=== PATIENT | male | born 1990 | race African-American/Black ===

== ENCOUNTER 2019-09-08 08:59 | Inpatient (IN) | payer MEDICAID, OTHER ==
[~2019-09-08] VITALS: Ht 180.3 cm; Wt 66.7 kg
[~2019-09-08 08:59] MED LIST: maalox; zofran
[2019-09-08] MEDS ORDERED: KETOROLAC 30MG/ML VIAL IV STA (09:55)
[2019-09-08] MEDS ORDERED: FAMOTIDINE 20MG/2ML VIAL IV STA (09:55)
[2019-09-08] MEDS ORDERED: ONDANSETRON HCL 4MG/2ML INJ IV STA ×2 (09:55→11:52)
[2019-09-08] MEDS ORDERED: SODIUM CHLORIDE 0.9% 1,000 ML IV ONE ×2 (09:55→11:52)
[2019-09-08 10:20] LABS: HEMOGLOBIN. 17.6 g/dL (14.0-18.0); MEAN CORPUSCULAR HEMOGLOBIN 32.5 pg (28.0-32.0); MEAN CORPUSCULAR VOLUME 92.2 fL (80.0-94.0); MEAN PLATELET VOLUME 7.4 fl (7.4-10.4); PLATELET 294 x1000/uL (130-400); RED BLOOD CELL COUNT 5.42 mill/uL (4.7-6.1); RED CELL DISTRIBUTION WIDTH 13.5 % (11.6-14.6)
[2019-09-08 10:28] LABS: CHLORIDE 79 mEq/L (98-107); PROTHROMBIN TIME 11.1 sec (9.6-11.0)
[2019-09-08] MEDS ORDERED: MAGNESIUM/ALUMINUM HYDROXIDE/SIMETHICONE 30ML UDC PO ONE (10:30)
[2019-09-08 11:40] LABS: ATYPICAL LYMPHOCYTES 1
[2019-09-08 11:41] LABS: PLATELET ESTIMATE NORMAL
[2019-09-08] MEDS ORDERED: ACETAMINOPHEN 325MG TABLET PO STA (11:52)
[2019-09-08] MEDS ORDERED: ACETAMINOPHEN 325MG TABLET PO PRN ×2 (13:45→15:15)
[2019-09-08 14:23] LABS: CLARITY URINE CLEAR (CLEAR); COLOR URINE YELLOW (YELLOW); KETONES URINE 2+ (NEGATIVE); LEUKOCYTE ESTERASE URINE TRACE (NEGATIVE); NITRITE URINE NEGATIVE (NEGATIVE); OCCULT BLOOD URINE NEGATIVE (NEGATIVE); PH URINE 5.5 (4.5-8.0); PROTEIN URINE TRACE (NEGATIVE); SPECIFIC GRAVITY URINE 1.023 (1.005-1.030); UROBILINOGEN URINE 0.2 E.U./dL (0.2-1.0)
[2019-09-08 15:08] VITALS: BP 125/70
[2019-09-08] MEDS ORDERED: SODIUM CHLORIDE 0.9% 1,000 ML IV SCH (15:14)
[2019-09-08] MEDS ORDERED: CLONIDINE 0.1MG TABLET PO PRN (15:15)
[2019-09-08] MEDS ORDERED: IPRATROPIUM/ALBUTEROL 0.5-3(2.5)MG/3ML NEB HHN PRN (15:15)
[2019-09-08] MEDS ORDERED: GUAIFENESIN 200MG/10ML SUGAR FREE UDC PO PRN (15:15)
[2019-09-08] MEDS ORDERED: LORAZEPAM 0.5MG TABLET PO PRN (15:15)
[2019-09-08] MEDS ORDERED: HYDROCODONE/ACETAMINOPHEN 5/325MG TABLET PO PRN (15:15)
[2019-09-08] MEDS ORDERED: DOCUSATE SODIUM 100MG CAPSULE PO PRN (15:15)
[2019-09-08 16:58] VITALS: BP 122/77
[2019-09-08] MEDS: PANTOPRAZOLE SODIUM 40 MG/VIAL IV SCH (17:15)
[2019-09-08] MEDS: SODIUM CHL 0.9% + KCL 20MEQ/L 1,000 ML IV SCH (17:15)
[2019-09-08] MEDS: SUCRALFATE 1 G/10 ML UDC PO SCH ×2 (17:15→20:51)
[2019-09-08] MEDS: MORPHINE SULFATE 2 MG/ML CPJ (NOT FOR IM USE) IV PRN ×2 (17:16→21:40)
[2019-09-08] MEDS: ONDANSETRON HCL 4MG/2ML INJ IV PRN (17:47)
[2019-09-08 18:00] VITALS: BP 145/73
[2019-09-08 18:32] LABS: PHOSPHORUS 5.7 mg/dL (2.5-4.9)
[2019-09-08] MEDS ORDERED: LORAZEPAM 2MG/ML CPJ IV PRN (18:40)
[2019-09-08 20:00] VITALS: BP 129/59
[2019-09-08] MEDS ORDERED: METOCLOPRAMIDE HCL 10MG/2ML VIAL IV PRN (20:30)
[2019-09-08 22:00] VITALS: BP 143/71
[2019-09-09] VITALS (12 sets, daily range): BP systolic 111–145; BP diastolic 54–85
[2019-09-09] MEDS ORDERED: METOCLOPRAMIDE HCL 10MG/2ML VIAL IV SCH
[2019-09-09] MEDS: SODIUM CHL 0.9% + KCL 20MEQ/L 1,000 ML IV SCH ×3 (01:34→18:11)
[2019-09-09] MEDS: ONDANSETRON HCL 4MG/2ML INJ IV PRN ×2 (04:36→12:06)
[2019-09-09] MEDS: MORPHINE SULFATE 2 MG/ML CPJ (NOT FOR IM USE) IV PRN (04:37)
[2019-09-09] MEDS: SUCRALFATE 1 G/10 ML UDC PO SCH ×4 (06:24→21:43)
[2019-09-09 06:54] LABS: HEMATOCRIT. 40.5 % (42.0-52.0); MEAN CORPUSCULAR HEMOGLOBIN 32.4 pg (28.0-32.0); MEAN PLATELET VOLUME 7.4 fl (7.4-10.4); PLATELET 229 x1000/uL (130-400); RED BLOOD CELL COUNT 4.31 mill/uL (4.7-6.1); RED CELL DISTRIBUTION WIDTH 13.4 % (11.6-14.6)
[2019-09-09 07:11] LABS: CHLORIDE 95 mEq/L (98-107)
[2019-09-09 07:17] LABS: PHOSPHORUS 2.5 mg/dL (2.5-4.9)
[2019-09-09 08:22] LABS: *AMPHETAMINES SCREEN URINE NEGATIVE (NEGATIVE)
[2019-09-09 08:23] LABS: *BARBITURATES SCREEN URINE NEGATIVE (NEGATIVE); *BENZODIAZEPINES SCREEN URINE NEGATIVE (NEGATIVE); *COCAINE SCREEN URINE NEGATIVE (NEGATIVE); METHADONE URINE SCREEN NEGATIVE (NEGATIVE); OPIATES URINE SCREEN NEGATIVE (NEGATIVE); PHENCYCLIDINE URINE SCREEN NEGATIVE (NEGATIVE)
[2019-09-09 08:24] LABS: CANNABINOID URINE SCREEN PRESUMTIVE POSITIVE (NEGATIVE)
[2019-09-09 08:28] LABS: SODIUM URINE RANDOM < 5 mEq/L
[2019-09-09] MEDS: PANTOPRAZOLE SODIUM 40 MG/VIAL IV SCH (08:28)
[2019-09-09] MEDS: DICYCLOMINE HCL 10MG CAPSULE PO SCH ×3 (12:06→23:34)
[2019-09-09 12:07] LABS: CLARITY URINE CLEAR (CLEAR); COLOR URINE YELLOW (YELLOW); KETONES URINE 2+ (NEGATIVE); LEUKOCYTE ESTERASE URINE NEGATIVE (NEGATIVE); NITRITE URINE NEGATIVE (NEGATIVE); OCCULT BLOOD URINE NEGATIVE (NEGATIVE); PH URINE 6.5 (4.5-8.0); PROTEIN URINE NEGATIVE (NEGATIVE); SPECIFIC GRAVITY URINE 1.013 (1.005-1.030); UROBILINOGEN URINE 0.2 E.U./dL (0.2-1.0)
[2019-09-09 13:33] LABS: ATYPICAL LYMPHOCYTES 1; PLATELET ESTIMATE NORMAL
[2019-09-10] VITALS: BP 118/70
[2019-09-10 02:00] VITALS: BP 136/64
[2019-09-10] MEDS: SODIUM CHL 0.9% + KCL 20MEQ/L 1,000 ML IV SCH ×2 (02:18→08:46)
[2019-09-10 04:00] VITALS: BP 127/43
[2019-09-10] MEDS: SUCRALFATE 1 G/10 ML UDC PO SCH ×2 (05:18→11:29)
[2019-09-10] MEDS: DICYCLOMINE HCL 10MG CAPSULE PO SCH ×2 (05:18→11:29)
[2019-09-10 06:31] LABS: BASOPHILS % 0.2 % (0.0-2.0); EOSINOPHILS % 0.4 % (0.0-5.0); HEMATOCRIT. 44.7 % (42.0-52.0); HEMOGLOBIN. 15.2 g/dL (14.0-18.0); LYMPHOCYTES % 24.2 % (20.0-50.0); MEAN CORPUSCULAR HEMOGLOBIN 32.4 pg (28.0-32.0); MEAN CORPUSCULAR VOLUME 95.4 fL (80.0-94.0); MEAN PLATELET VOLUME 8.1 fl (7.4-10.4); MONOCYTES % 13.2 % (2.0-8.0); PLATELET 214 x1000/uL (130-400); RED BLOOD CELL COUNT 4.68 mill/uL (4.7-6.1); RED CELL DISTRIBUTION WIDTH 13.3 % (11.6-14.6)
[2019-09-10 07:13] LABS: CHLORIDE 98 mEq/L (98-107)
[2019-09-10 08:02] VITALS: BP 142/86
[2019-09-10] MEDS: PANTOPRAZOLE SODIUM 40 MG/VIAL IV SCH (08:46)
[2019-09-10] MEDS ORDERED: POTASSIUM PHOS,M-BASIC-D-BASIC 30 MMOL in SODIUM CHLORIDE 0.9% 500 ML IV NR (11:00)
[2019-09-10 11:30] VITALS: BP 116/76
[2019-09-10] MEDS ORDERED: ONDA4TAB11 PO (12:19)
[2019-09-10] MEDS ORDERED: SUCR1ORA15 PO (12:19)
[2019-09-10] MEDS ORDERED: METO-293 MT (12:19)
[2019-09-10] MEDS ORDERED: FAMO20TA8 MT (12:19)
[2019-09-10] MEDS ORDERED: DICY10CA88 PO (12:19)
[2019-09-10 12:43] VITALS: BP 116/76
[2019-09-11] MEDS ORDERED: FAMOTIDINE 20MG/2ML VIAL IV SCH (09:00)
== END 2019-09-10 14:36 | disposition home or self-care (01) | DRG 469 ==
LOC: ER 08:59 → 3WST 13:44 → ENRESERV 14:31 → 3WST 16:53
PROVIDERS: ADMIT Internal Medicine; ATTEND Internal Medicine
DX: N17.9 Acute kidney failure, unspecified (principal); E46 Unspecified protein-calorie malnutrition; E87.1 Hypo-osmolality and hyponatremia; E88.89 Other specified metabolic disorders; D75.1 Secondary polycythemia; E83.39 Other disorders of phosphorus metabolism; E83.42 Hypomagnesemia; E87.6 Hypokalemia; E86.0 Dehydration; K31.84 Gastroparesis; T73.0XXA Starvation, initial encounter; K21.9 Gastro-esophageal reflux disease without esophagitis; D72.821 Monocytosis (symptomatic); K29.70 Gastritis, unspecified, without bleeding; R82.4 Acetonuria; E86.1 Hypovolemia; F12.90 Cannabis use, unspecified, uncomplicated; F17.210 Nicotine dependence, cigarettes, uncomplicated; F32.9 Major depressive disorder, single episode, unspecified; Z68.20 Body mass index [BMI] 20.0-20.9, adult; Y92.89 Other specified places as the place of occurrence of the external cause; Y99.8 Other external cause status; Z71.6 Tobacco abuse counseling
CPT/HCPCS: 36415; 71045; 74176; 76770; 80048; 80053; 80305; 81003; 82533; 82550; 82570; 83735; 83880; 83935; 84100; 84295; 84300; 84439; 84443; 84484; 85025; 85379; 93005; 99285; C9113; J1885; J2060; J2270; J2405; J2765; J3480; J3490; J7030; J7040